=== PATIENT | male | born 1995 | race Caucasian/White ===

== ENCOUNTER 2017-04-21 06:29 | Emergency (ER) | payer OTHER ==
[~2017-04-21] VITALS: Ht 180.3 cm; Wt 102.0 kg
[2017-04-21] MEDS ORDERED: ULTR50TA8 PO (08:47)
[2017-04-21] MEDS ORDERED: CIPR-249 PO (08:47)
[2017-04-21 08:57] VITALS: BP 129/78
--- NOTE | 2017-04-21 12:22 | REP ---
INGUINAL ULTRASOUND: Real-time sonographic evaluation of the inguinal region is performed at rest and with Valsalva maneuver. There is a small right inguinal hernia containing fat but no bowel. It is reducible. It is only seen with Valsalva maneuver. There is no left inguinal hernia. No other mass or fluid collection is seen in the inguinal regions. IMPRESSION: Small right inguinal hernia observed with Valsalva maneuver containing fat but no bowel. It is reduced at rest. Signed by Hudson Oh MD 04/21/2017 03:16 P
--- NOTE | 2017-04-21 12:22 | REP ---
SCROTAL ULTRASOUND: Real-time sonographic evaluation of the scrotum and contents performed. Testicles are normal in size and echotexture, right testicle measuring 5.0 x 3.0 x 3.4 cm and left testicle 4.7 x 2.4 x 3.0 cm. There is no testicular mass or torsion, with blood flow seen in each testicle with duplex Doppler evaluation, RI right testicle 0.42 and left testicle 0.54. A few tiny calcifications are seen in both testicles. Cyst in the head of the left epididymis measures 4 mm in diameter. Right epididymis is enlarged and heterogeneous with increased flow compatible with epididymitis. IMPRESSION: Right sided epididymitis. No testicular mass or torsion. Signed by Hudson Oh MD 04/21/2017 03:16 P
== END 2017-04-21 09:02 | disposition home or self-care (01) ==
LOC: M ED 08:31
DX: K40.90 Unilateral inguinal hernia, without obstruction or gangrene, not specified as recurrent (principal); N45.1 Epididymitis; N39.0 Urinary tract infection, site not specified; A74.9 Chlamydial infection, unspecified

== ENCOUNTER → 2019-01-31 | Outpatient (CLI) | payer OTHER ==
[~2019-01-31] MED LIST: CIPR-249 PO; ULTR50TA8 PO
--- NOTE | 2019-01-31 17:21 | REP ---
Clinical: Dyspnea. Technique: Axial noncontrast images from the thoracic inlet to the upper abdomen with coronal and sagittal re-formations. Findings: The bilateral lung barnett are well-aerated, symmetric, and essentially clear. Small calcification identified in the anterior right upper lobe with adjacent scarring consistent with chronic change. No acute consolidation, nodule or mass lesion. No pleural effusion. No pneumothorax. Tracheobronchial tree is patent. No obvious adenopathy. The mediastinum demonstrates normal thoracic aorta, pulmonary vasculature and heart/pericardium. Surrounding musculoskeletal structures are intact. Impression: No acute mediastinal or pleuroparenchymal process. Essentially normal noncontrast chest CT. Electronically Signed by Zeyad Aguiar MD 01/31/2019 05:13 P
== END ==
LOC: M RAD 16:52
PROVIDERS: ATTEND Physician Assistant
DX: R91.8 Other nonspecific abnormal finding of lung field (principal)

== ENCOUNTER → 2019-02-25 | Outpatient (CLI) | payer OTHER ==
[~2019-02-25] MED LIST changes: +METHACHOLINE KIT (J7674) INH ONE
--- NOTE | 2019-02-25 14:01 | PFTRPT ---
Height: 71.00 Inches Weight: 250.00 Lbs BSA: 2.32 Diagnosis: GUILLERMO DATE OF PROCEDURE: 02/25/2019 ORDERED BY: Jolynn Hoffmann Spirometry: Study of excellent technical quality. Forced vital capacity normal. FEV1 in proportion. Obstructive index is, therefore, normal. Flow Volume Loop: Expiratory limb of the flow volume loop is normal. Lung Volumes: Total lung capacity normal. Residual volume is in proportion. Diffusing Capacity: Diffusing capacity normal. Hemoglobin: No hemoglobin available for correction. Airway Mechanics: Airway resistance and conductance are normal. IMPRESSION: Normal study. MTDD
--- NOTE | 2019-02-25 14:01 | PFTRPT ---
Height: 71.00 Inches Weight: 250.00 Lbs BSA: 2.32 Diagnosis: GUILLERMO DATE OF PROCEDURE: 02/25/2019 ORDERED BY: Jolynn oHffmann INTERPRETATION: Study of excellent technical quality. Under protocol, methacholine was administered. At a dose of 0.25 mg or 1.375 CDUs, a 22% decline in the FEV1 was noted. PC of 0.18 is significant. Flow rates did return to baseline post bronchodilator administration. IMPRESSION: Positive methacholine challenge study. MTDD
== END ==
LOC: M CARPUL 12:47
PROVIDERS: ATTEND Physician Assistant
DX: R06.00 Dyspnea, unspecified (principal); Z87.891 Personal history of nicotine dependence
CPT/HCPCS: 94010; 94070; 94726; 94729; J7674